=== PATIENT | female | born 1970 | race Caucasian/White ===

== ENCOUNTER 2016-05-21 21:16 | Emergency (ER) | payer OTHER ==
[~2016-05-21] VITALS: Ht 154.9 cm; Wt 66.4 kg
[~2016-05-21 21:16] MED LIST: DOXY100T2 PO; LVF250T PO; METR500T PO
[2016-05-21 21:21] VITALS: BP 130/84; PULSE 77; RESP 16; O2SAT 98
--- NOTE | 2016-05-21 21:48 | DRSVH ---
PROCEDURE: X-RAY LEFT FOOT COMPLETE, MINIMUM THREE VIEWS ([id number]) INDICATIONS: pain TECHNIQUE: 3 views of the foot were acquired. COMPARISON: None. FINDINGS: Bones: No fractures or dislocations. No suspicious bony lesions. Calcaneal bone spur noted. Soft tissues: No tibiotalar joint effusion. Achilles tendon appears normal. IMPRESSION: No fracture. No osseous lesion. If there are persistent symptoms or clinical suspicion f or pathology, then repeat radiographs or advanced imaging (CT, MRI or bone scan) should be considered for further evaluation. Dictated by: Samantha Nielsen MD, PhD on 05/21/2016 at 21:46 Approved by: Samantha Nielsen MD, PhD on 05/21/2016 at 21:46
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
[2016-05-21] MEDS ORDERED: NAPR500T PO (22:03)
== END 2016-05-21 22:15 | disposition home or self-care (01) ==
LOC: SED 21:16
DX: M77.9 Enthesopathy, unspecified (principal); Z87.891 Personal history of nicotine dependence